=== PATIENT | female | born 1970 | race Caucasian/White ===

== ENCOUNTER 2016-10-25 00:40 | Emergency (ER) | payer BC, OTHER ==
--- NOTE | 2016-10-25 01:23 | ED ---
General Adult HPI - General Source: patient Mode of arrival: ambulatory Limitations: no limitations <Isaias Mccracken - Last Filed: 10/25/16 01:23> <Kwadwo Mcgowan - Last Filed: 10/25/16 03:40> - General Chief complaint: Extremity Injury, Upper Stated complaint: fall hand injury - History of Present Illness Initial comments: Patient states that she fell within the last several hours. Complains of pain to the ulnar aspect of the right hand. No open wound noted. Patient denies any other injuries at this time. (NawafIsaias) - Related Data Home Medications Medication Instructions Recorded Confirmed No Known Home Medications [No 10/25/16 10/25/16 Known Home Medications] Allergies Allergy/AdvReac Type Severity Reaction Status Date / Time No Known Allergies Allergy Verified 03/03/15 10:20 Review of Systems ROS Other: All systems not noted in ROS Statement are negative. <Isaias Mccracken - Last Filed: 10/25/16 01:23> ROS Other: All systems not noted in ROS Statement are negative. <Kwadwo Mcgowan - Last Filed: 10/25/16 03:40> ROS Statement: Those systems with pertinent positive or pertinent negative responses have been documented in the HPI. review of systems. Denies any other pain of the pain to the right hand. States she had an alcoholic drink beforehand.patient smokes daily. Family history noncontributory. No known ALLERGIES. (NawafIsaias) Past Medical History Past Medical History: No Reported History History of Any Multi-Drug Resistant Organisms: None Reported Past Surgical History: No Surgical Hx Reported Past Psychological History: No Psychological Hx Reported Smoking Status: Current every day smoker Past Alcohol Use History: Occasional Past Drug Use History: None Reported <Isaias Mccracken - Last Filed: 10/25/16 01:23> General Exam Limitations: no limitations <NawafIsaias - Last Filed: 10/25/16 01:23> <Kwadwo Mcgowan - Last Filed: 10/25/16 03:40> - General Exam Comments Initial Comments: examination; patient complains discomfort to the ulnar aspect of her right hand. Mild swelling is noted. Range of motion is decreased secondary to pain. No open wounds are noted. Patient denies pain in the other part of the body. Vital signs temperature 90.8 pulse 105 respiratory rate 18 pulse ox 96% room air blood pressure 117/69. (Isaias Mccracken) Medical Decision Making <Isaias Mccracken - Last Filed: 10/25/16 01:23> - Radiology Data Radiology results: report reviewed (Boxes break right hand x-ray right hand), image reviewed <Kwadwo Mcgowan - Last Filed: 10/25/16 03:40> - Medical Decision Making final disposition will be determined after x-ray. (Isaias Mccracken) 46 female in the ER for evaluation, patient has x-ray positive for boxes break. Patient will be discharged home (Kwadwo Mcgowan) Disposition <Isaias Mccracken - Last Filed: 10/25/16 01:23> <Kwadwo Mcgowan - Last Filed: 10/25/16 03:40> Clinical Impression: Boxers fracture Disposition: HOME SELF-CARE Instructions: Boxer Fracture (ED) Referrals: None,Stated [Primary Care Provider] - 1-2 days
--- NOTE | 2016-10-25 02:55 | XR ---
EXAM: XR Right Hand Complete, 3 or More Views CLINICAL HISTORY: Reason: fell, complains of pain ulnar aspect right hand TECHNIQUE: Frontal, lateral and oblique views of the right hand. COMPARISON: No relevant prior studies available. FINDINGS: Bones/joints: Acute fracture of the proximal aspect of the fifth metacarpal with palmar angulation of the distal component. No other fracture or malalignment. Adjacent soft tissue swelling. Joint spaces are maintained. Soft tissues: See above. IMPRESSION: Acute fracture of the proximal aspect of the fifth metacarpal.
[2016-10-25 03:59] VITALS: BP 113/65; PULSE 82; RESP 16; TEMP 98.2
== END 2016-10-25 03:57 | disposition home or self-care (01) ==
LOC: EC 00:40
DX: S62.316A Displaced fracture of base of fifth metacarpal bone, right hand, initial encounter for closed fracture (principal); F17.200 Nicotine dependence, unspecified, uncomplicated; W18.30XA Fall on same level, unspecified, initial encounter
CPT/HCPCS: 99283

== ENCOUNTER 2017-09-27 23:53 | Emergency (ER) | payer SELFPAY ==
[2017-09-27 23:59] VITALS: TEMP 97.3
[2017-09-28] MEDS ORDERED: MORPHINE SULFATE 2 MG/ML SYRINGE IVP STA (00:25)
[2017-09-28] MEDS ORDERED: KETAMINE 10 MG/ML 20 ML VIAL IV ONE (00:46)
[2017-09-28] MEDS ORDERED: SODIUM CHLORIDE 0.9% 1,000 ML IV ONE (00:46)
--- NOTE | 2017-09-28 00:47 | ED ---
Lower Extremity Injury HPI <Newton Chavira - Last Filed: 09/28/17 02:09> - General Source: patient, RN notes reviewed, old records reviewed Mode of arrival: wheelchair Limitations: no limitations <Cyn Mendoza - Last Filed: 09/28/17 02:23> - General Chief Complaint: Extremity Injury, Lower Stated Complaint: Fall Time Seen by Provider: 09/28/17 00:00 - History of Present Illness Initial Comments: This patient's a 47-year-old female presents emergency department today she bled of left ankle pain. She is being carried by her friend and her friend dropped her. She reports that she landed on her ankle. Patient states she's not been able to bear weight. She reports that she has no other injury. No head injury or loss of conscious. (Cyn Mendoza) - Related Data Previous Rx's Medication Instructions Recorded HYDROcodone/APAP 5-325MG [[place] 1 tab PO Q6HR PRN #15 tab 09/28/17 5-325] Allergies Allergy/AdvReac Type Severity Reaction Status Date / Time No Known Allergies Allergy Verified 09/27/17 23:59 Review of Systems ROS Other: All systems not noted in ROS Statement are negative. <Newton Chavira - Last Filed: 09/28/17 02:09> ROS Other: All systems not noted in ROS Statement are negative. <Cyn Mendoza - Last Filed: 09/28/17 02:23> ROS Statement: Those systems with pertinent positive or pertinent negative responses have been documented in the HPI. Past Medical History Past Medical History: No Reported History History of Any Multi-Drug Resistant Organisms: None Reported Past Surgical History: No Surgical Hx Reported Past Psychological History: No Psychological Hx Reported Smoking Status: Current every day smoker Past Alcohol Use History: Occasional Past Drug Use History: None Reported <Cyn Mendoza - Last Filed: 09/28/17 02:23> General Exam <Newton Chavira - Last Filed: 09/28/17 02:09> Limitations: no limitations General appearance: alert, in no apparent distress Head exam: Present: atraumatic, normocephalic, normal inspection Eye exam: Present: normal appearance, PERRL, EOMI. Absent: scleral icterus, conjunctival injection, periorbital swelling ENT exam: Present: normal exam, mucous membranes moist Neck exam: Present: normal inspection. Absent: tenderness, meningismus, lymphadenopathy Respiratory exam: Present: normal lung sounds bilaterally. Absent: respiratory distress, wheezes, rales, rhonchi, stridor Cardiovascular Exam: Present: regular rate, normal rhythm, normal heart sounds. Absent: systolic murmur, diastolic murmur, rubs, gallop, clicks GI/Abdominal exam: Present: soft, normal bowel sounds. Absent: distended, tenderness, guarding, rebound, rigid Left Lower Leg exam: Present: normal inspection, full ROM Ankle exam: Present: normal inspection, full ROM, swelling, deformity Foot/Toe exam: Present: tenderness, swelling. Absent: normal inspection, full ROM Neurovascular tendon exam: Present: no vascular compromise Gait: observed and normal Back exam: Present: normal inspection Neurological exam: Present: alert, oriented X3, CN II-XII intact Psychiatric exam: Present: normal affect, normal mood Skin exam: Present: warm, dry, intact, normal color. Absent: rash <Cyn Mendoza - Last Filed: 09/28/17 02:23> - General Exam Comments Initial Comments: 47-year-old female. Alert and oriented. No acute distress. (Cyn Mendoza) Vital Signs 09/27/17 09/28/17 09/28/17 23:55 00:58 01:21 Temperature 97.3 F L Pulse Rate 73 73 88 Respiratory 18 18 18 Rate Blood Pressure 94/58 109/59 108/56 O2 Sat by Pulse 98 97 100 Oximetry 09/28/17 09/28/17 01:24 01:30 Temperature Pulse Rate 99 97 Respiratory 16 18 Rate Blood Pressure 110/71 111/57 O2 Sat by Pulse 100 97 Oximetry Procedures - Orthopedic Fracture Reduction Fracture #1 Consent Obtained: verbal consent Time Out Performed: Yes Side: left Fracture Reduction Location: tibia, fibula Analgesia: procedural sedation Technique: direct manipulation Post Reduction X-rays Demonstrate: anatomical reduction Post-Reduction Neuro Exam: intact Post-Reduction Vascular Exam: intact Splint Applied: Yes Patient Tolerated Procedure: well - Orthopedic Splinting/Casting Injury #1 Side: left Lower Extremity Injury Location: short leg, ankle Lower Extremity Immobilizer: posterior splint Other Orthopedic Equipment: crutches - Procedural Sedation Procedural Sedation Start Time: 01:21 Procedural Sedation Stop Time: 01:52 Indications: fracture/dislocation reduction ASA Class: I Mallampati Airway Score: 1 Preparation: playground monitor applied, pulse oximeter, capnometry used, supplemental O2 applied, suction/airway equipment at bedside, IV secured Ketamine: IV Ketamine Dose: 50 Complications: none Patient Tolerated Procedure: well <JohnNewton gomez - Last Filed: 09/28/17 02:09> Medical Decision Making <Newton Chavira - Last Filed: 09/28/17 02:09> - Radiology Data Radiology results: report reviewed <Cyn Mendoza - Last Filed: 09/28/17 02:23> - Medical Decision Making 47 yo female with left ankle injury. There is obvious deformity on initial exam. 2+ DP pulse present. X-rays obtained, shows trimalleolar fracture. This is reduced under conscious sedation, patient tolerates well. Postreduction x-ray reveals satisfactory reduction. Case discussed with orthopedics on-call Dr. Mario, patient okay for discharge, follow up with orthopedics in 24 hours. Nonweightbearing left lower extremity. (Newton Chavira) - Radiology Data Trimalleolar fracture with mild lateral subluxation of the talus. Foot x-rays negative for any acute process. Ankle fractures are noted. (Cyn Mendoza) Disposition <ShahlaNewton correa - Last Filed: 09/28/17 02:09> Is patient prescribed a controlled substance at d/c from ED?: Yes When asked, does pt state using other controlled substances?: No If prescribed controlled substance>3 days was MAPS reviewed?: Prescribed <3 Days If opioid is for acute pain is fill amount 7 days or less?: Yes If Rx opioid, was Start Talking consent form obtained?: No Time of Disposition: 01:17 <Cyn Mendoza - Last Filed: 09/28/17 02:23> Clinical Impression: Trimalleolar fracture of left ankle Disposition: HOME SELF-CARE Condition: Good Instructions: Ankle Fracture (ED) Additional Instructions: Patient has follow-up with artificial intelligence specialist. Patient is to remain in the splint. Return to the emergency department if any alarming signs or symptoms occur. Prescriptions: HYDROcodone/APAP 5-325MG [[place] 5-325] 1 tab PO Q6HR PRN #15 tab PRN Reason: Pain Referrals: None,Stated [Primary Care Provider] - 1-2 days Wilbur Wang DO [Doctor of Osteopathic Medicine] - 1-2 days Ankit Mario DO [Doctor of Osteopathic Medicine] - 1-2 days
--- NOTE | 2017-09-28 01:02 | XR ---
EXAMINATION TYPE: XR ankle complete LT DATE OF EXAM: 09/28/2017 COMPARISON: NONE HISTORY: Ankle pain TECHNIQUE: 3 views FINDINGS: There is oblique fracture distal fibula. There is transverse fracture of the medial malleol us. There is probably a small chip fracture of the posterior malleolus. There is 1 cm lateral subluxa tion of the talus. There is soft tissue swelling. IMPRESSION: Trimalleolar fracture of the ankle with mild lateral subluxation of the talus.
--- NOTE | 2017-09-28 01:03 | XR ---
EXAMINATION TYPE: XR foot complete LT DATE OF EXAM: 09/28/2017 COMPARISON: NONE HISTORY: Left ankle and foot pain TECHNIQUE: 3 views FINDINGS: Metatarsals are intact. The bones of the foot appear intact. There is fracture at the ankle joint described in the ankle x-ray report. IMPRESSION: No foot fracture seen. Ankle fractures noted.
--- NOTE | 2017-09-28 01:49 | XR ---
EXAMINATION TYPE: XR ankle limited LT DATE OF EXAM: 09/28/2017 COMPARISON: Today HISTORY: Post reduction TECHNIQUE: 2 views FINDINGS: 2 views are obtained through the cast. There is trimalleolar fracture of the ankle joint. T here is satisfactory reduction of the fragments. There is 3 mm lateral subluxation of the talus. IMPRESSION: There is fairly satisfactory reduction of the ankle joint fracture. No complicating proce ss seen.
[2017-09-28 02:33] VITALS: BP 92/51; PULSE 76; RESP 17
== END 2017-09-28 02:41 | disposition home or self-care (01) ==
LOC: EC 23:53
DX: S82.852A Displaced trimalleolar fracture of left lower leg, initial encounter for closed fracture (principal); S93.02XA Subluxation of left ankle joint, initial encounter; F17.200 Nicotine dependence, unspecified, uncomplicated; W04.XXXA Fall while being carried or supported by other persons, initial encounter; Y93.I9 Activity, other involving external motion; Y92.89 Other specified places as the place of occurrence of the external cause
CPT/HCPCS: 99284; 27818; 99152; 99153; 96374; 73600; 73610; 73630; J2270

== ENCOUNTER → 2017-10-04 | Outpatient (CLI) | payer SELFPAY ==
--- NOTE | 2017-10-05 10:59 | CT ---
EXAMINATION TYPE: CT ankle LT wo con DATE OF EXAM: 10/04/2017 COMPARISON: Left ankle radiographs dated 09/28/2017 HISTORY: PAIN LT ANKLE/FALL. Known trimalleolar fracture with reduction. CT DLP: 229 mGycm Automated exposure control for dose reduction was used. TECHNIQUE: Contiguous axial CT images of the left ankle were obtained. Coronal and sagittal reformats were also obtained for review. FINDINGS: There is redemonstration of the known trimalleolar fracture that has been reduced with overlying cast ing material. The medial malleolus fracture is predominantly transversely oriented extending into the joint space without joint space widening (3 mm). This is mildly comminuted with very small fracture fragments seen at the most medial aspect of the fracture site. The lateral malleolus fractures also c omminuted with a predominantly obliquely oriented fracture site extending into the syndesmosis and 2 mm lateral displacement of the distal fracture fragment. A second fracture site more inferiorly is se en with transverse orientation that is nondisplaced. However the anterior margin of the fibula has di straction of 6 mm also a comminution is a small fracture fragment is seen at the distal aspect of the dominant fracture fragment. With regards to the posterior malleolar fracture this is primarily obliq uely oriented and nondisplaced with multiple small comminuted fracture fragment and intra-articular e xtension. There is diffuse overlying subcutaneous soft tissue swelling. There is a well-corticated fragment leeanne ng the course of the thickened tibialis posterior tendon at the level of the navicular that may relat e to calcific tendinitis or prior injury. The insertion site of the posterior tibialis is not seen in the [id number]-uc-ecdu. There is suspected injury to thickening of the tendon. The extensor tendons are w ithin normal limits on CT although would be better evaluated with MRI. The Achilles tendon appears gr ossly unremarkable. Evaluation of the other flexor tendons is limited on CT and also limited due to s urrounding edema. Skin lesions are incidentally noted of the dorsal ankle. IMPRESSION: 1. REDEMONSTRATION OF A TRIMALLEOLAR FRACTURE WITH INTRA-ARTICULAR EXTENSION AND COMMINUTION OF ALL 3 FRACTURE SITES. NO EVIDENCE OF ANKLE MALALIGNMENT OR ADDITIONAL FRACTURE IDENTIFIED. TALAR DOME APPE ARS INTACT. DIFFUSE OVERLYING SOFT TISSUE SWELLING IS PRESENT. 2. THICKENING OF THE TIBIALIS POSTERIOR TENDON AND WELL-CORTICATED OSSEOUS FRAGMENT ALONG ITS COURSE NEAR THE TALUS SUGGESTING ACUTE ON CHRONIC INJURY. THIS WOULD BE BETTER ASSESSED WITH MRI.
== END | disposition home or self-care (01) ==
LOC: RADCTMAIN 18:49
PROVIDERS: ATTEND Orthopaedic Surgery
DX: S82.852A Displaced trimalleolar fracture of left lower leg, initial encounter for closed fracture (principal)

== ENCOUNTER 2017-10-17 08:22 | Day surgery (SDC) | payer SELFPAY ==
[2017-10-16 11:48] VITALS: BMI 22.1
[~2017-10-17 08:22] MED LIST: DEXAMETHASONE SOD PHOSPHATE 10 MG/ML 1 ML VIAL IV ONE; LACTATED RINGERS 1,000 ML IV SCH; LIDOCAINE 1% 20 ML VIAL (10MG/ML) FOR IV START INTRADERMA PRN; MIDAZOLAM 2 MG/2 ML VIAL IV PRN; ONDANSETRON 4 MG/2 ML VIAL IVP ONE; SCOPOLAMINE 1.5MG/72HR PATCH TRANSDERM ONE; ceFAZolin IN SWFI 2 GM/20 ML SYRINGE IVP ONE
[2017-10-17] MEDS ORDERED: PROPOFOL 10 MG/ML 20 ML VIAL IV ONE (11:47)
[2017-10-17] MEDS ORDERED: fentaNYL (PF) 50 MCG/ML 2 ML AMP ONE (11:47)
[2017-10-17] MEDS ORDERED: LIDOCAINE 1% INJ 10MG/ML (20 ML MDV) ONE (11:47)
[2017-10-17] MEDS ORDERED: HYDROmorphone (PF) 1 MG/ML ONE (11:47)
[2017-10-17] MEDS ORDERED: SUCCINYLCHOLINE CHLORIDE 100 MG/5 ML SYR IV ONE (11:47)
[2017-10-17] MEDS ORDERED: MIDAZOLAM 2 MG/2 ML VIAL ONE (11:47)
[2017-10-17] MEDS ORDERED: LACTATED RINGERS 1,000 ML IV ONE ×2 (12:27)
--- NOTE | 2017-10-17 14:08 | FL ---
EXAMINATION TYPE: FL guidance operating room DATE OF EXAM: 10/17/2017 HISTORY: Flouroscopy time 55 seconds of fluoroscopy provided. IMPRESSION: 1. Fluoroscopy time.
[2017-10-17] MEDS: HYDROmorphone 0.5 MG/0.5 ML SYRINGE IVP PRN ×2 (14:32→14:39)
[2017-10-17 14:37] VITALS: TEMP 97
[2017-10-17] MEDS: MEPERIDINE 50 MG/ML SYRINGE IVP ONE ×2 (14:47→14:58)
[2017-10-17] MEDS: fentaNYL (PF) 50 MCG/ML 2 ML AMP IV ONE ×2 (15:20→15:39)
[2017-10-17 16:16] VITALS: RESP 18
[2017-10-17 16:35] VITALS: BP 112/72; PULSE 88
--- NOTE | 2017-10-17 17:27 | OP ---
OPERATIVE REPORT DATE OF SURGERY: 10/17/2017 PREOPERATIVE DIAGNOSES: 1. Displaced bimalleolar left ankle fracture. 2. Cigarette smoking. POSTOPERATIVE DIAGNOSES: 1. Displaced bimalleolar left ankle fracture. 2. Cigarette smoking. PROCEDURES: 1. Open reduction and internal fixation of bimalleolar left ankle fracture (open reduction and internal fixation of medial and lateral malleolus). 2. Manual application of stress by physician per joint radiography, left ankle. 3. Application of short-leg splint, left, by physician. SURGEON: Dr. Emmett Portillo. ALL AROUND GEAR MACHINE OPERATOR: Fly HUNTER (Fly Aragon was required as a skilled corporate law assistant for patient positioning, draping, surgical exposure, retraction, reduction of fracture, placement of hardware, closure of wound and application of splint). ANESTHESIA: General plus popliteal and saphenous nerve block. FLUIDS: 1200 mL crystalloid. BLOOD LOSS: 20 mL. INDICATION: The patient is a very pleasant, previously healthy 47-year-old female with a medical history significant for smoking one half pack to one full pack of cigarettes a day who sustained an isolated injury to her left ankle. She was initially seen in the office by my partner, Dr. Mario, who referred her to my office. I met the patient 2 weeks ago. At that time she had multiple serous-filled fracture blisters about the ankle. They were unroofed in the office. A Silvadene dressing was applied and a well-padded bulky Phipps splint was placed, reducing the ankle. She was sent for a CT scan. We met with the patient following the CT scan to discuss treatment. I recommended open reduction and internal fixation of her ankle fracture. We discussed the potential risks and complications of surgery, including but not limited to risk of anesthesia, risk of superficial infection, risk of deep infection, risk of delayed wound healing, risk of superficial wound necrosis, risk of fracture nonunion, risk of fracture malunion, risk of postoperative displacement, risk of postoperative implant failure, risk of post-traumatic arthritis, risk of chronic pain, risk of chronic swelling, risk of DVT, risk of PE, risk of inability to regain pre-injury level of function, risk of generalized dissatisfaction with surgery, and possible loss of life or limb. The patient voiced her understanding that she is at a much higher risk of having a complication, particularly of the fracture healing or developing a wound problem, due to her history of cigarette smoking. She was strongly encouraged to quit smoking. The patient provided her consent to go forward with surgery. PROCEDURE: The patient was identified in Preoperative Holding and the correct left leg was marked with my initials. I reviewed the consent form with the patient and her ex-. The correct left leg was marked. The patient was then brought back to the operating room by Anesthesia. She was positioned on the OR table, where a general anesthetic and preoperative antibiotics were administered. A tourniquet was applied to the proximal aspect of the left thigh. All bony prominences were well padded. A bump was placed under the left buttock, internally rotating the leg to neutral. A ramp was placed under the left leg to facilitate imaging. The left leg was then prepped and draped in the standard sterile fashion. Prior to starting surgery, a timeout was performed identifying the correct patient, operative extremity and procedure. The patient's leg was then elevated, exsanguinated with an Esmarch bandage, and the tourniquet was inflated to 250 mmHg. I began by outlining an incision over the lateral aspect of the distal fibula. Skin incision was made with a 15 blade scalpel and dissection was carried down carefully through the subcutaneous tissue with tenotomy scissors. The periosteum and fascial layer over the peroneal muscles was incised in line with the skin incision. The fracture was then exposed from the fracture site. On inspection of the fracture, there was a typical Cannon B fracture fragment extending obliquely from superior and posterior to anterior and inferior. There was also a large fragment off of the anterior aspect of the distal fragment. This fracture fragment appeared large enough that I thought it warranted its own fixation. The fracture fragment anteriorly was gently debrided and teased away from the distal fragment. Once the fracture fragment was freed, it was held reduced to the distal fibular fragment with a zgvvx-ce-szvqs reduction clamp. The combined distal fragment and anterior fragment were then reduced to the shaft. I elected to contour a 2-0 plate anteriorly to hold this anterior fragment down to the shaft and distal fragment. Two 2.0 mm screws were placed proximal to the fracture fragment and one was placed distally. A final 2.0 mm screw was then placed through the fracture fragment as a lag screw. This reduced the fracture fragment nicely to both the distal fragment and shaft. After this had been done, I was able to remove the kzsed-xw-qtjkw reduction clamps, and both fracture fragments maintained reduction. I then contoured a 1/3 tubular plate in a posterolateral position to use as an antiglide construct. I placed a single 3.5 mm screw in the hole just proximal to the fracture. I proceeded to place an additional 2 screws in the first and third holes of the plate. Attention was then turned distally, and I placed a fully threaded 3.5 mm screw from posterior to anterior in the distal fragment. Fluoroscopy was brought in to verify reduction of the fracture and placement of the hardware. The fibula appeared to be out to length and anatomically reduced. On inspection, the fibula was anatomically reduced. Attention was then turned medially. A longitudinal incision was marked out over the medial malleolus. Skin incision was made with a scalpel and dissection was carried down carefully through the subcutaneous tissue with tenotomy scissors. The fracture fragment was identified. An early callus was debrided using a pituitary rongeur. I placed a 2 mm drill bit just proximal to the fracture and made a unicortical hole to help facilitate placement of a rciyr-fc-trowd reduction clamp. One maverick of the point- to-point reduction clamp was placed in this hole and the other maverick was placed at the tip of the medial malleolus. The fracture fragment was then reduced. On inspection, the fracture appeared to be anatomically reduced, but on C-arm fluoroscopy the ankle appeared to be pulled into varus. The kzqsl-fd-zdteg reduction clamp was then released. There was comminution at the fracture site and the fracture was being over- reduced with the lbzwl-uf-bnwdt reduction clamp. I then extended the dissection medially to the level of the ankle joint. I keyed in the anterior aspect of the fracture fragment and assessed my reduction clinically based on the joint surface of the medial shoulder. I then placed two K-wires across the fracture fragment, holding it in an anatomic position. There was a small amount of bone loss over the medial malleolus at the site of comminution, but the ankle mortise appeared to be reduced with no evidence of tilt in the talus. I then proceeded to place two fully threaded bicortical 3.5 mm screws across the medial malleolus fragment. Both screws measured 60 mm. Local bone graft was packed at the fracture site at the medial malleolus. Both wounds were then copiously irrigated. Final fluoroscopic images were taken, including a mortise view and a true talar dome overlap. The fibula appeared to be out to length and the talus was centered in the ankle mortise on both views. A manual external rotation stress x-ray was also obtained, which showed no widening of the medial clear space or incisura. I interpreted this as a stable syndesmosis not requiring a syndesmotic screw. Both wounds were then closed in layers with 0 Vicryl for the deep fascial layer, 2-0 Vicryl for the subcutaneous tissue, and 3-0 nylon for the skin. The tourniquet was let down. A sterile dressing consisting of Betadine-soaked Adaptic, 4 x 4, and Webril was applied. The patient was then woken from her anesthetic, transferred from the OR table to a gurney and brought to PACU, having tolerated the procedure well. PLAN: The patient is going to discharge home as an outpatient. She is to remain strictly non- weightbearing on her left leg. She is to keep her splint on at all times and is to keep it clean and dry. She was strongly encouraged to quit smoking. Based on her risk stratification, I think it is reasonable to send her home on aspirin 325 mg b.i.d. for DVT prophylaxis. She was also strongly encouraged for early ambulation and getting out of bed and into a chair as long as she remains non-weightbearing on her left leg. She was given a prescription for Percocet for pain control. We will check a 25 hydroxy vitamin D level. She was also instructed to avoid taking NSAID pain medications, which could interfere with bone healing. MMODL / IJN: [id number] /
--- NOTE | 2017-10-18 12:01 | XR ---
EXAMINATION TYPE: XR ankle limited LT DATE OF EXAM: 10/17/2017 COMPARISON: NONE HISTORY: Postop TECHNIQUE: 2 views submitted FINDINGS: Postsurgical change appears in near anatomic alignment. IMPRESSION: postsurgical change
--- NOTE | 2017-11-21 11:58 | CDI ---
Outpatient Documentation Clarification Form Date: 11/21/17 CDS/Form Setter/Driver Name: Chetna Horner Phone: If any questions, call Karen Ramírez Tape Recorder Mechanic at [phone] Patient Name: Feli Archibald Admit Date: 10/17/17 Discharge Date: 10/17/17 ATTENTION: The [facility] Coding Staff appreciate your assistance in clarifying documentation. Please respond to the clarification below the line at the bottom and electronically sign. The [facility] Coding staff will review the response and follow-up if needed. Please note: Queries are made part of the Legal Health Record. If you have any questions, please contact the Tape Recorder Mechanic. Dear Dr. Portillo, What was the purpose of the popliteal and saphenous nerve block? Was it for post -op pain management? Thank you for your kind consideration. Post op pain management after ankle ORIF MTDD
== END 2017-10-17 17:04 | disposition home or self-care (01) ==
LOC: OR 08:22
PROVIDERS: ATTEND Orthopaedic Surgery
DX: S82.842A Displaced bimalleolar fracture of left lower leg, initial encounter for closed fracture (principal); W19.XXXA Unspecified fall, initial encounter; F17.210 Nicotine dependence, cigarettes, uncomplicated; Z79.2 Long term (current) use of antibiotics; Z79.1 Long term (current) use of non-steroidal anti-inflammatories (NSAID); Z79.891 Long term (current) use of opiate analgesic
CPT/HCPCS: 27814; 77071; 73600; 64447; C1713; J2250; J1100; J2175; J2405; J2001; J3010; J1170 ×2; J0330; J2704; J0690

== ENCOUNTER 2018-09-22 20:11 | Emergency (ER) | payer OTHER ==
[2018-09-22 20:14] VITALS: RESP 18
[2018-09-22] MEDS ORDERED: MIDAZOLAM 1 MG/ML 5 ML VIAL IV STA (20:17)
[2018-09-22] MEDS ORDERED: HYDROmorphone 1 MG/ML 1 ML SYRINGE IVP STA (20:17)
[2018-09-22] MEDS ORDERED: SODIUM CHLORIDE 0.9% 1,000 ML IV STA ×2 (20:17→20:19)
[2018-09-22] MEDS ORDERED: MORPHINE SULFATE 4 MG/ML SYRINGE IV STA (20:19)
--- NOTE | 2018-09-22 20:20 | ED ---
Abdominal Pain HPI - General Chief Complaint: Abdominal Pain Stated Complaint: Abd pain Time Seen by Provider: 09/22/18 20:16 Source: patient, RN notes reviewed, old records reviewed Mode of arrival: ambulatory Limitations: no limitations - History of Present Illness Initial Comments: This is a 48-year-old female the ER for evaluation. Presents today for evaluation regards to bowel pain severe bowel pain. Patient has abdominal pain feels like she has abnormal mass in her abdomen. Right side of right lower quadrant of abdomen. No injuries no nausea vomiting or diarrhea. No fevers. No history of similar pain. No significant surgical history. MD Complaint: abdominal pain -: days(s) Location: RLQ Radiation: RLQ Migration to: RLQ, suprapubic Severity: moderate Severity scale (1-10): 4 Quality: cramping, aching Consistency: constant Improves With: nothing Worsens With: nothing Associated Symptoms: denies other symptoms - Related Data Home Medications Medication Instructions Recorded Confirmed Ibuprofen [Motrin Ib] 400 mg PO Q8HR PRN 10/16/17 10/16/17 oxyCODONE-APAP 5-325MG [Percocet 1 tab PO TID PRN 10/16/17 10/17/17 5-325 mg] Previous Rx's Medication Instructions Recorded Aspirin 325 mg PO BID #60 tab 10/17/17 Docusate [Colace] 100 mg PO BID #60 capsule 10/17/17 oxyCODONE-APAP 5-325MG [Percocet 1 tab PO Q4HR PRN #36 tab 10/17/17 5-325 mg] Allergies Allergy/AdvReac Type Severity Reaction Status Date / Time No Known Allergies Allergy Verified 09/22/18 20:14 Review of Systems ROS Statement: Those systems with pertinent positive or pertinent negative responses have been documented in the HPI. ROS Other: All systems not noted in ROS Statement are negative. Past Medical History Past Medical History: No Reported History Additional Past Medical History / Comment(s): INJURY LEFT ANKLE 09/28/17- HAS SPLINT AND USING CRUTCHES., HAS IUD. History of Any Multi-Drug Resistant Organisms: None Reported Past Surgical History: Tonsillectomy Additional Past Surgical History / Comment(s): TONSILLS (CHILD) Past Anesthesia/Blood Transfusion Reactions: No Reported Reaction Past Psychological History: No Psychological Hx Reported Smoking Status: Current every day smoker Past Alcohol Use History: Occasional Past Drug Use History: None Reported - Past Family History Mother Family Medical History: No Reported History General Exam Limitations: no limitations General appearance: alert, in no apparent distress Head exam: Present: atraumatic, normocephalic, normal inspection Eye exam: Present: normal appearance, PERRL, EOMI. Absent: scleral icterus, conjunctival injection, periorbital swelling ENT exam: Present: normal exam, mucous membranes moist Neck exam: Present: normal inspection. Absent: tenderness, meningismus, lymphadenopathy Respiratory exam: Present: normal lung sounds bilaterally. Absent: respiratory distress, wheezes, rales, rhonchi, stridor Cardiovascular Exam: Present: regular rate, normal rhythm, normal heart sounds. Absent: systolic murmur, diastolic murmur, rubs, gallop, clicks GI/Abdominal exam: Present: soft, normal bowel sounds. Absent: distended, tende rness, guarding, rebound, rigid Extremities exam: Present: normal inspection, full ROM, normal capillary refill. Absent: tenderness, pedal edema, joint swelling, calf tenderness Back exam: Present: normal inspection Neurological exam: Present: alert, oriented X3, CN II-XII intact Psychiatric exam: Present: normal affect, normal mood Skin exam: Present: warm, dry, intact, normal color. Absent: rash Course Vital Signs 09/22/18 20:12 Temperature 98.0 F Pulse Rate 79 Respiratory 18 Rate Blood Pressure 111/75 O2 Sat by Pulse 99 Oximetry - Reevaluation(s) Reevaluation #1: 09/22/18 21:43 Record is reviewed Reevaluation #2: 09/22/18 21:43 Patient's pain is improved Medical Decision Making - Medical Decision Making 48 female presenting to ER for evaluation of nonspecific abdominal pain. Lab values urine and computed tomography scan of abdomen pelvis are negative and patient can be discharged home - Lab Data Result diagrams: 09/22/18 20:38 09/22/18 20:38 Lab Results 09/22/18 09/22/18 09/22/18 Range/Units 20:38 20:38 20:38 WBC 6.2 (3.8-10.6) k/uL RBC 4.18 (3.80-5.40) m/uL Hgb 13.0 (11.4-16.0) gm/dL Hct 38.4 (34.0-46.0) % MCV 91.8 (80.0-100.0) fL MCH 31.0 (25.0-35.0) pg MCHC 33.8 (31.0-37.0) g/dL RDW 13.7 (11.5-15.5) % Plt Count 310 (150-450) k/uL Neutrophils % 55 % Lymphocytes % 31 % Monocytes % 7 % Eosinophils % 3 % Basophils % 1 % Neutrophils # 3.4 (1.3-7.7) k/uL Lymphocytes # 1.9 (1.0-4.8) k/uL Monocytes # 0.4 (0-1.0) k/uL Eosinophils # 0.2 (0-0.7) k/uL Basophils # 0.0 (0-0.2) k/uL Sodium 141 (137-145) mmol/L Potassium 4.8 (3.5-5.1) mmol/L Chloride 109 H (98-107) mmol/L Carbon Dioxide 23 (22-30) mmol/L Anion Gap 9 mmol/L BUN 5 L (7-17) mg/dL Creatinine 0.53 (0.52-1.04) mg/dL Est GFR (CKD-EPI)AfAm >90 (>60 ml/min/1.73 sqM) Est GFR (CKD-EPI)NonAf >90 (>60 ml/min/1.73 sqM) Glucose 94 (74-99) mg/dL Plasma Lactic Acid Chip 1.4 (0.7-2.0) mmol/L Calcium 9.6 (8.4-10.2) mg/dL Total Bilirubin 0.5 (0.2-1.3) mg/dL AST 46 H (14-36) U/L ALT 29 (9-52) U/L Alkaline Phosphatase 54 (38-126) U/L Total Protein 6.9 (6.3-8.2) g/dL Albumin 4.4 (3.5-5.0) g/dL Amylase 30 (30-110) U/L Lipase 89 (23-300) U/L Urine Color Urine Appearance (Clear) Urine pH (5.0-8.0) Ur Specific [place] (1.001-1.035) Urine Protein (Negative) Urine Glucose (UA) (Negative) Urine Ketones (Negative) Urine Blood (Negative) Urine Nitrite (Negative) Urine Bilirubin (Negative) Urine Urobilinogen (<2.0) mg/dL Ur Leukocyte Esterase (Negative) 09/22/18 Range/Units 20:48 WBC (3.8-10.6) k/uL RBC (3.80-5.40) m/uL Hgb (11.4-16.0) gm/dL Hct (34.0-46.0) % MCV (80.0-100.0) fL MCH (25.0-35.0) pg MCHC (31.0-37.0) g/dL RDW (11.5-15.5) % Plt Count (150-450) k/uL Neutrophils % % Lymphocytes % % Monocytes % % Eosinophils % % Basophils % % Neutrophils # (1.3-7.7) k/uL Lymphocytes # (1.0-4.8) k/uL Monocytes # (0-1.0) k/uL Eosinophils # (0-0.7) k/uL Basophils # (0-0.2) k/uL Sodium (137-145) mmol/L Potassium (3.5-5.1) mmol/L Chloride (98-107) mmol/L Carbon Dioxide (22-30) mmol/L Anion Gap mmol/L BUN (7-17) mg/dL Creatinine (0.52-1.04) mg/dL Est GFR (CKD-EPI)AfAm (>60 ml/min/1.73 sqM) Est GFR (CKD-EPI)NonAf (>60 ml/min/1.73 sqM) Glucose (74-99) mg/dL Plasma Lactic Acid Chip (0.7-2.0) mmol/L Calcium (8.4-10.2) mg/dL Total Bilirubin (0.2-1.3) mg/dL AST (14-36) U/L ALT (9-52) U/L Alkaline Phosphatase (38-126) U/L Total Protein (6.3-8.2) g/dL Albumin (3.5-5.0) g/dL Amylase (30-110) U/L Lipase (23-300) U/L Urine Color Light Yellow Urine Appearance Clear (Clear) Urine pH 5.5 (5.0-8.0) Ur Specific [place] 1.003 (1.001-1.035) Urine Protein Negative (Negative) Urine Glucose (UA) Negative (Negative) Urine Ketones Negative (Negative) Urine Blood Negative (Negative) Urine Nitrite Negative (Negative) Urine Bilirubin Negative (Negative) Urine Urobilinogen <2.0 (<2.0) mg/dL Ur Leukocyte Esterase Negative (Negative) - Radiology Data Radiology results: report reviewed (CT of pelvis is negative for acute disease), image reviewed Disposition Clinical Impression: Abdominal pain Disposition: HOME SELF-CARE Condition: Good Instructions (If sedation given, give patient instructions): Abdominal Pain (ED) Is patient prescribed a controlled substance at d/c from ED?: No Referrals: None,Stated [Primary Care Provider] - 1-2 days
[2018-09-22 20:54] LABS: Basophils % (A) 1 %; Eosinophils # (A) 0.2 k/uL (0-0.7); Eosinophils % (A) 3 %; HCT 38.4 % (34.0-46.0); Lymphocytes # (A) 1.9 k/uL (1.0-4.8); Lymphocytes % (A) 31 %; MCHC 33.8 g/dL (31.0-37.0); MCV 91.8 fL (80.0-100.0); Mean Platelet Volume 7.9; Monocytes # (A) 0.4 k/uL (0-1.0); Monocytes % (A) 7 %; Neutrophils # (A) 3.4 k/uL (1.3-7.7); Neutrophils % (A) 55 %; Platelet Count 310 k/uL (150-450); RBC 4.18 m/uL (3.80-5.40); RDW 13.7 % (11.5-15.5); WBC 6.2 k/uL (3.8-10.6)
[2018-09-22 21:03] LABS: ALT 29 U/L (9-52); AST 46 U/L (14-36); African American GFR (CKD) >90 (>60 ml/min/1.73 sqM); Albumin 4.4 g/dL (3.5-5.0); Alkaline Phosphatase 54 U/L (38-126); Amylase 30 U/L (30-110); Anion Gap 9 mmol/L; Blood Urea Nitrogen 5 mg/dL (7-17); Calcium 9.6 mg/dL (8.4-10.2); Carbon Dioxide 23 mmol/L (22-30); Chloride 109 mmol/L (98-107); Glucose 94 mg/dL (74-99); Lipase 89 U/L (23-300); Potassium 4.8 mmol/L (3.5-5.1); Sodium 141 mmol/L (137-145); Total Bilirubin 0.5 mg/dL (0.2-1.3); Total Protein 6.9 g/dL (6.3-8.2)
[2018-09-22 21:28] LABS: Appearance,Urine Clear (Clear); Bilirubin,Urine Negative (Negative); Blood,Urine Negative (Negative); Color,Urine Light Yellow; Glucose,Urine (UA) Negative (Negative); Ketones,Urine Negative (Negative); Leukocyte Esterase,Urine Negative (Negative); Nitrite,Urine Negative (Negative); PH, Urine 5.5 (5.0-8.0); Protein,Urine Negative (Negative); Specific Gravity,Urine 1.003 (1.001-1.035); Urobilinogen,Urine <2.0 mg/dL (<2.0)
--- NOTE | 2018-09-22 21:35 | CT ---
EXAMINATION TYPE: CT abdomen pelvis w con DATE OF EXAM: 09/22/2018 COMPARISON: 05/31/2014 HISTORY: RLQ pain, hx of cervical ca CT DLP: 529.1 mGycm Automated exposure control for dose reduction was used. TECHNIQUE: Helical acquisition of images was performed from the lung bases through the pelvis. CONTRAST: Performed without Oral Contrast and with IV Contrast, patient injected with 100 mL of Isovue 300. FINDINGS: Lung bases are clear. There is no pleural effusion. Heart size is normal. Liver spleen pancreas gallb ladder appear normal. Bile ducts are not dilated. Stomach appears normal. There is no adrenal mass. Kidneys show satisfactory contrast opacification. There is no hydronephrosi s. There is no retroperitoneal adenopathy. Ureters are not dilated. Appendix appears normal. Bladder distends smoothly. Uterus is tilted to the right side. There is IUD noted in good position. There is no free fluid in the pelvis. There is no inguinal hernia. I see no mesenteric edema. There is no sign of free air or ascites. There is no evidence of a bowel o bstruction. Uterus is anteverted. The lumbar vertebra have normal spacing and alignment. Bony pelvis is intact. IMPRESSION: NEGATIVE CT SCAN ABDOMEN AND PELVIS. NORMAL APPENDIX. NO ADVERSE CHANGE COMPARED TO OLD EXAM.
[2018-09-22 22:11] VITALS: BP 107/65; PULSE 58; TEMP 98
== END 2018-09-22 22:15 | disposition home or self-care (01) ==
LOC: EC 20:11
DX: R10.31 Right lower quadrant pain (principal); F17.200 Nicotine dependence, unspecified, uncomplicated; Z97.5 Presence of (intrauterine) contraceptive device; Z87.828 Personal history of other (healed) physical injury and trauma
CPT/HCPCS: 36415; 80053; 82150; 83605; 83690; 85025; 81003; 87086; 74177; 99284; 96374; 96361; J2270; Q9967

== ENCOUNTER 2021-01-21 17:32 | Emergency (ER) | payer OTHER ==
[2021-01-21 18:53] VITALS: RESP 18
[2021-01-21] MEDS ORDERED: SODIUM CHLORIDE 0.9% 1,000 ML IV STA (21:30)
--- NOTE | 2021-01-21 22:13 | ED ---
General Adult HPI - General Chief complaint: Syncope Stated complaint: Syncope X 2 Time Seen by Provider: 01/21/21 20:41 Source: patient Mode of arrival: wheelchair Limitations: no limitations - History of Present Illness Initial comments: 50 year-old female patient presents to the emergency department for evaluation after having a syncopal episode. Prior to arrival she was walking outside when she started to feel like she was going to pass out. States she got dizzy. She sat down on a picnic table, significant other states that her eyes opened wide, she stiffened, and was not responding. States she came out of it, went to stand up and it happened again. Each episode lasted a few seconds. She had no shaking. No loss of bowel or bladder control. No tongue biting. Denies history of fainting or seizures. They state she was immediately able to speak, was not confused, no post-ictal type symptoms. Patient denies any recent rash, fever, chills, cough, shortness of breath, chest pain, nausea, vomiting, diarrhea, constipation, back pain, numbness, tingling, hematuria, dysuria, urinary urgency, urinary frequency, headache, visual changes, or any other complaints. She reports history of chronic abdominal pain, no testing has found a cause. She reports also has an IUD in place that is 3 years overdue to be removed. Also has history of lower blood pressures. - Related Data Home Medications Medication Instructions Recorded Confirmed No Known Home Medications 01/21/21 01/21/21 Allergies Allergy/AdvReac Type Severity Reaction Status Date / Time No Known Allergies Allergy Verified 01/21/21 21:57 Review of Systems ROS Statement: Those systems with pertinent positive or pertinent negative responses have been documented in the HPI. ROS Other: All systems not noted in ROS Statement are negative. Past Medical History Past Medical History: No Reported History Additional Past Medical History / Comment(s): INJURY LEFT ANKLE 09/28/17- HAS SPLINT AND USING CRUTCHES., HAS IUD. History of Any Multi-Drug Resistant Organisms: None Reported Past Surgical History: Tonsillectomy Additional Past Surgical History / Comment(s): TONSILLS (CHILD) Past Anesthesia/Blood Transfusion Reactions: No Reported Reaction Past Psychological History: No Psychological Hx Reported Smoking Status: Current every day smoker Past Alcohol Use History: Occasional Past Drug Use History: None Reported - Past Family History Mother Family Medical History: No Reported History General Exam Limitations: no limitations General appearance: alert, in no apparent distress, other (This is a well- developed, well-nourished adult female patient in no acute distress.) ENT exam: Present: normal exam, normal oropharynx, mucous membranes moist Respiratory exam: Present: normal lung sounds bilaterally. Absent: respiratory distress, wheezes, rales, rhonchi, stridor Cardiovascular Exam: Present: regular rate, normal rhythm, normal heart sounds. Absent: systolic murmur, diastolic murmur, rubs, gallop, clicks GI/Abdominal exam: Present: soft, normal bowel sounds. Absent: distended, tenderness, guarding, rebound, rigid Neurological exam: Present: alert, oriented X3, CN II-XII intact Psychiatric exam: Present: normal affect, normal mood Skin exam: Present: warm, dry, intact, normal color. Absent: rash Course Vital Signs 01/21/21 01/21/21 01/21/21 18:50 22:13 22:16 Temperature 97.1 F L Pulse Rate 65 Pulse Rate [ 61 Standing Pulse Oximetery] Pulse Rate [ 59 L Supine Pulse Oximetery] Respiratory 18 18 18 Rate Blood Pressure 90/63 Blood Pressure 107/65 [Right Arm Standing] Blood Pressure 104/57 [Right Arm Supine] O2 Sat by Pulse 99 98 99 Oximetry 01/21/21 01/21/21 23:14 23:38 Temperature 97.3 F L 97.7 F Pulse Rate 73 64 Pulse Rate [ Standing Pulse Oximetery] Pulse Rate [ Supine Pulse Oximetery] Respiratory 18 18 Rate Blood Pressure 107/63 99/68 Blood Pressure [Right Arm Standing] Blood Pressure [Right Arm Supine] O2 Sat by Pulse 99 100 Oximetry Medical Decision Making - Medical Decision Making 50-year-old female patient presented to the emergency department today for evaluation after having a syncopal episode. She had no postictal state, no shaking, tongue biting, loss of bowel or bladder control. Physical exam is unremarkable. She is neurologically intact with no focal deficits. Labs reviewed and are unremarkable. She'll have mildly low blood pressure which she states is normal for her. Heart rate is in the 50s. She was able to in place in the department without difficulty. She'll be discharged to follow-up with her primary care physician for recheck in 1-2 days, to have been recommended for her. Return parameters were discussed in detail. She verbalizes understanding and agrees with this plan. Case discussed with my attending Dr. Mcgowan. - Lab Data Result diagrams: 01/21/21 21:55 01/21/21 21:55 Lab Results 01/21/21 01/21/21 01/21/21 Range/Units 21:55 21:55 21:55 WBC 4.5 (3.8-10.6) k/uL RBC 3.99 (3.80-5.40) m/uL Hgb 12.4 (11.4-16.0) gm/dL Hct 35.9 (34.0-46.0) % MCV 90.1 (80.0-100.0) fL MCH 31.1 (25.0-35.0) pg MCHC 34.5 (31.0-37.0) g/dL RDW 12.8 (11.5-15.5) % Plt Count 252 (150-450) k/uL MPV 7.8 Neutrophils % 44 % Lymphocytes % 40 % Monocytes % 9 % Eosinophils % 3 % Basophils % 1 % Neutrophils # 2.0 (1.3-7.7) k/uL Lymphocytes # 1.8 (1.0-4.8) k/uL Monocytes # 0.4 (0-1.0) k/uL Eosinophils # 0.2 (0-0.7) k/uL Basophils # 0.0 (0-0.2) k/uL PT 9.6 (9.0-12.0) sec INR 0.9 (<1.2) APTT 23.5 (22.0-30.0) sec Sodium (137-145) mmol/L Potassium (3.5-5.1) mmol/L Chloride (98-107) mmol/L Carbon Dioxide (22-30) mmol/L Anion Gap mmol/L BUN (7-17) mg/dL Creatinine (0.52-1.04) mg/dL Est GFR (CKD-EPI)AfAm (>60 ml/min/1.73 sqM) Est GFR (CKD-EPI)NonAf (>60 ml/min/1.73 sqM) Glucose (74-99) mg/dL Calcium (8.4-10.2) mg/dL Magnesium (1.6-2.3) mg/dL Total Bilirubin (0.2-1.3) mg/dL AST (14-36) U/L ALT (4-34) U/L Alkaline Phosphatase (38-126) U/L Troponin I (0.000-0.034) ng/mL Total Protein (6.3-8.2) g/dL Albumin (3.5-5.0) g/dL Urine Color Light Yellow Urine Appearance Clear (Clear) Urine pH 6.5 (5.0-8.0) Ur Specific [place] 1.005 (1.001-1.035) Urine Protein Negative (Negative) Urine Glucose (UA) Negative (Negative) Urine Ketones Negative (Negative) Urine Blood Negative (Negative) Urine Nitrite Negative (Negative) Urine Bilirubin Negative (Negative) Urine Urobilinogen <2.0 (<2.0) mg/dL Ur Leukocyte Esterase Negative (Negative) Urine HCG, Qual (Not Detectd) 01/21/21 01/21/21 01/21/21 Range/Units 21:55 21:55 21:55 WBC (3.8-10.6) k/uL RBC (3.80-5.40) m/uL Hgb (11.4-16.0) gm/dL Hct (34.0-46.0) % MCV (80.0-100.0) fL MCH (25.0-35.0) pg MCHC (31.0-37.0) g/dL RDW (11.5-15.5) % Plt Count (150-450) k/uL MPV Neutrophils % % Lymphocytes % % Monocytes % % Eosinophils % % Basophils % % Neutrophils # (1.3-7.7) k/uL Lymphocytes # (1.0-4.8) k/uL Monocytes # (0-1.0) k/uL Eosinophils # (0-0.7) k/uL Basophils # (0-0.2) k/uL PT (9.0-12.0) sec INR (<1.2) APTT (22.0-30.0) sec Sodium 137 (137-145) mmol/L Potassium 4.8 (3.5-5.1) mmol/L Chloride 106 (98-107) mmol/L Carbon Dioxide 23 (22-30) mmol/L Anion Gap 8 mmol/L BUN 7 (7-17) mg/dL Creatinine 0.44 L (0.52-1.04) mg/dL Est GFR (CKD-EPI)AfAm >90 (>60 ml/min/1.73 sqM) Est GFR (CKD-EPI)NonAf >90 (>60 ml/min/1.73 sqM) Glucose 102 H (74-99) mg/dL Calcium 8.7 (8.4-10.2) mg/dL Magnesium 2.2 (1.6-2.3) mg/dL Total Bilirubin 0.5 (0.2-1.3) mg/dL AST 48 H (14-36) U/L ALT 25 (4-34) U/L Alkaline Phosphatase 50 (38-126) U/L Troponin I <0.012 (0.000-0.034) ng/mL Total Protein 7.2 (6.3-8.2) g/dL Albumin 4.2 (3.5-5.0) g/dL Urine Color Urine Appearance (Clear) Urine pH (5.0-8.0) Ur Specific [place] (1.001-1.035) Urine Protein (Negative) Urine Glucose (UA) (Negative) Urine Ketones (Negative) Urine Blood (Negative) Urine Nitrite (Negative) Urine Bilirubin (Negative) Urine Urobilinogen (<2.0) mg/dL Ur Leukocyte Esterase (Negative) Urine HCG, Qual Not Detected (Not Detectd) - Radiology Data Radiology results: report reviewed, image reviewed CT brain without contrast was obtained. Report reviewed in its entirety. Impression by Dr. Barkley shows normal unenhanced head computed tomography scan. Maxillary sinusitis noted. Disposition Clinical Impression: Syncope Disposition: HOME SELF-CARE Condition: Good Instructions (If sedation given, give patient instructions): Syncope (ED) Additional Instructions: Increase fluids. Rest. Follow-up with the primary care physician for recheck as soon as possible. Return to the emergency department immediately for any new, worsening, or concerning symptoms. Is patient prescribed a controlled substance at d/c from ED?: No Referrals: Jai Leo [STAFF PHYSICIAN] - 1-2 days Quinton Luke MD [REFERRING] - 1-2 days Time of Disposition: 23:18
[2021-01-21 22:15] LABS: ALT 25 U/L (4-34); AST 48 U/L (14-36); African American GFR (CKD) >90 (>60 ml/min/1.73 sqM); Albumin 4.2 g/dL (3.5-5.0); Alkaline Phosphatase 50 U/L (38-126); Anion Gap 8 mmol/L; Appearance,Urine Clear (Clear); Bilirubin,Urine Negative (Negative); Blood Urea Nitrogen 7 mg/dL (7-17); Blood,Urine Negative (Negative); Calcium 8.7 mg/dL (8.4-10.2); Carbon Dioxide 23 mmol/L (22-30); Chloride 106 mmol/L (98-107); Color,Urine Light Yellow; Glucose 102 mg/dL (74-99); Glucose,Urine (UA) Negative (Negative); Ketones,Urine Negative (Negative); Leukocyte Esterase,Urine Negative (Negative); Magnesium 2.2 mg/dL (1.6-2.3); Nitrite,Urine Negative (Negative); Non-African American GFR(CKD) >90 (>60 ml/min/1.73 sqM); PH, Urine 6.5 (5.0-8.0); Protein,Urine Negative (Negative); Sodium 137 mmol/L (137-145); Specific Gravity,Urine 1.005 (1.001-1.035); Total Bilirubin 0.5 mg/dL (0.2-1.3); Total Protein 7.2 g/dL (6.3-8.2); Urobilinogen,Urine <2.0 mg/dL (<2.0)
[2021-01-21 22:20] LABS: Potassium 4.8 mmol/L (3.5-5.1)
[2021-01-21 22:25] LABS: Basophils % (A) 1 %; Eosinophils # (A) 0.2 k/uL (0-0.7); Eosinophils % (A) 3 %; HCT 35.9 % (34.0-46.0); HGB 12.4 gm/dL (11.4-16.0); Lymphocytes # (A) 1.8 k/uL (1.0-4.8); Lymphocytes % (A) 40 %; MCH 31.1 pg (25.0-35.0); MCHC 34.5 g/dL (31.0-37.0); MCV 90.1 fL (80.0-100.0); Mean Platelet Volume 7.8; Monocytes # (A) 0.4 k/uL (0-1.0); Monocytes % (A) 9 %; Neutrophils % (A) 44 %; Platelet Count 252 k/uL (150-450); RBC 3.99 m/uL (3.80-5.40); RDW 12.8 % (11.5-15.5); WBC 4.5 k/uL (3.8-10.6)
[2021-01-21 22:37] LABS: INR 0.9 (<1.2); Partial Thromboplastin Time 23.5 sec (22.0-30.0); Prothrombin Time 9.6 sec (9.0-12.0)
--- NOTE | 2021-01-21 22:50 | CT ---
EXAMINATION TYPE: CT brain wo con DATE OF EXAM: 01/21/2021 COMPARISON: None HISTORY: syncope CT DLP: 1082.4 mGycm Automated exposure control for dose reduction was used. Ventricles have normal size. There is no mass effect nor midline shift. There is no sign of intracran ial hemorrhage. Calvarium is intact. There is normal aeration of the mastoid sinuses. IMPRESSION: Normal unenhanced head CT scan. Maxillary sinusitis noted.
[2021-01-21 23:45] VITALS: BP 99/68; PULSE 64; TEMP 97.7
== END 2021-01-21 23:38 | disposition home or self-care (01) ==
LOC: EC 17:32
DX: R55 Syncope and collapse (principal); F17.200 Nicotine dependence, unspecified, uncomplicated
CPT/HCPCS: 36415; 70450; 80053; 81003; 81025; 83735; 84484; 85025; 85610; 85730; 96360; 99284